=== PATIENT | female | born 1955 | race Caucasian/White ===

== ENCOUNTER 2018-07-18 10:41 | Emergency (ER) | payer MEDICARE, MEDICAID ==
[2018-07-18 10:57] VITALS: BP 151/62
[2018-07-18] MEDS ORDERED: FAMOTIDINE 20 MG TABLET PO ONE (11:52)
--- NOTE | 2018-07-18 11:58 | ER Document Report ---
HPI - HPI Patient complains to provider of: Burning in mouth, stomach upset Time Seen by Provider: 07/18/18 11:51 Onset: Last week Onset/Duration: Intermittent Quality of pain: No pain, Burning Severity: None Pain Level: Denies Context: Patient states she has had burning to her mouth and tongue and upset stomach off and on for the last week. She states she thinks somebody is putting something in her food. She states somebody is moving her food around an opening of food when she is not there. She denies any pain at this time. She states that sometimes she gets stomach burning and acid pain but she does not have any at this time. Her lungs are clear to auscultation abdomen is soft and nontender. She states that her older son owns the house she lives then and she has called him and told him that she thinks somebody is putting stuff in her food. I have suggested that she call her son and have them change the locks if she is really concerned about this. Associated Symptoms: Other - Thinks someone spit some in her food Exacerbated by: Food Relieved by: Denies Similar symptoms previously: Yes Recently seen / treated by doctor: No - ROS ROS below otherwise negative: Yes - CONSTITUTIONAL Constitutional: DENIES: Fever, Chills - EENT EENT: REPORTS: Sore Throat. DENIES: Ear Pain, Nasal Drainage-Clear, Nasal Drainage-Purulent, Congestion, Eye problems - NEURO Neurology: DENIES: Headache, Weakness, Vision blurred, Dizzinesss / Vertigo - CARDIOVASCULAR Cardiovascular: DENIES: Chest pain - RESPIRATORY Respiratory: DENIES: Trouble Breathing, Coughing - GASTROINTESTINAL Gastrointestinal: DENIES: Abdominal Pain, Nausea, Patient vomiting, Diarrhea, Constipation, Black / Bloody Stools Notes: States sometimes she has a burning cramping feeling in the top of her stomach but no pain at this time - URINARY Urinary: DENIES: Dysuria, Urgency, Frequency - REPRODUCTIVE Reproductive: DENIES: :, Postmenopausal, Abnormal bleeding / discharge - MUSCULOSKELETAL Musculoskeletal: DENIES: Extremity pain, Back Pain, Neck Pain, Swelling - DERM Skin Color: Normal Skin Problems: None Past Medical History - General Information source: Patient - Social History Smoking Status: Never Smoker Chew tobacco use (# tins/day): No Frequency of alcohol use: None Drug Abuse: None Lives with: Alone Family History: Reviewed & Not Pertinent Patient has suicidal ideation: No Patient has homicidal ideation: No - Past Medical History Cardiac Medical History: Reports: None Denies: Hx Coronary Artery Disease, Hx Heart Attack, Hx Hypertension Pulmonary Medical History: Reports: None EENT Medical History: Reports: None Neurological Medical History: Reports: None Endocrine Medical History: Reports: None Renal/ Medical History: Reports: None Malignancy Medical History: Reports: None GI Medical History: Reports: Hx Gastroesophageal Reflux Disease - diet controlled Musculoskeletal Medical History: Reports None Skin Medical History: Reports None Psychiatric Medical History: Reports: None Traumatic Medical History: Reports: None Infectious Medical History: Reports: None Past Surgical History: Reports: Hx Appendectomy, Hx Orthopedic Surgery - left hip replacement, Hx Tubal Ligation - Immunizations Hx Diphtheria, Pertussis, Tetanus Vaccination: Yes Vertical Provider Document - CONSTITUTIONAL Agree With Documented VS: Yes Exam Limitations: negative: No Limitations, Clinical Condition, Intoxication, Language Barrier, Physical Impairment, Other General Appearance: WD/WN, No Apparent Distress - INFECTION CONTROL TRAVEL OUTSIDE OF THE [place] IN LAST 30 DAYS: No - HEENT HEENT: Atraumatic, Normal ENT Exam, Normocephalic, PERRLA - NECK Neck: Normal Inspection, Supple - RESPIRATORY Respiratory: Breath Sounds Normal, No Respiratory Distress, Chest Non-Tender - CARDIOVASCULAR Cardiovascular: Regular Rate, Regular Rhythm, No Murmur - GI/ABDOMEN Gastrointestinal: Abdomen Soft, Abdomen Non-Tender, No Organomegaly, Normal Bowel Sounds - BACK Back: Normal Inspection - MUSCULOSKELETAL/EXTREMETIES Musculoskeletal/Extremeties: MAEW, FROM, Non-Tender - NEURO Level of Consciousness: Awake, Alert - DERM Integumentary: Warm, Dry, No Rash Course - Re-evaluation Re-evalutation: 07/18/18 11:56 Patient has been treated with Pepcid in the emergency room and she has been instructed to use Pepcid until she can follow-up with her primary care doctor after the . Patient has been instructed to follow-up with her son if she continues to be concerned that her other son is putting stuff in her food. Patient verbalized understanding and agreement with treatment plan and patient was discharged home. - Vital Signs Vital signs: Temp Pulse Resp BP Pulse Ox 97.7 F 74 16 151/62 H 95 07/18/18 10:54 07/18/18 10:54 07/18/18 10:54 07/18/18 10:54 07/18/18 10:54 Discharge - Discharge Clinical Impression: Thank someone is putting stuff in her food Condition: Stable Disposition: HOME, SELF-CARE Additional Instructions: Acid-Suppressing Medication You have a prescription for medicine which reduces the stomach's secretion of acid. Examples include Zantac, Tagament, and Pepcid. These drugs are often used to allow healing of ulcers or esophagitis. They may be needed to prevent recurrence of ulcers in some patients, or to prevent damage from acid reflux in the esophagus. Take all medication as prescribed, even after the pain is gone. Regular antacids may be added as needed if you have symptoms while taking this medicine. These medications sometimes are prescribed for allergic reactions because they have anti-histaminic effects and relieve the rash and itching of the reaction. There are usually no side effects from this medication. But, in rare cases and particularly in the elderly, serious problems can occur. Contact your doctor if there is fever, rash, hallucinations, confusion, or unusual bruising. Contact your doctor at once if you develop lightheadedness, black or bloody stool, or bloody vomitus. Please call your son and discuss whether you need to change the locks on your doors did not give your younger son and his girlfriend a blevins. If you continue to have concerns you can call the computer artist and let them know that you are thinking someone is messing with your food. Call your primary care doctor on Sunday or Sunday when she returns from holidays and discussed with her and whether you need to follow-up care and treatment for your GERD. FOLLOW-UP CARE: If you have been referred to a physician for follow-up care, call the physicians office for an appointment as you were instructed or within the next two days. If you experience worsening or a significant change in your symptoms, notify the physician immediately or return to the Emergency Department at any time for re-evaluation. Referrals: AYESHA ALFONSO, [NO LOCAL MD] - Follow up as needed
== END 2018-07-18 11:55 | disposition home or self-care (01) ==
LOC: ER 10:41
DX: R10.9 Unspecified abdominal pain (principal); J02.9 Acute pharyngitis, unspecified
CPT/HCPCS: 99282; A9270